=== PATIENT | male | born 1955 | race Caucasian/White ===

== ENCOUNTER 2019-03-24 10:52 | Emergency (ER) | payer OTHER ==
[2019-03-24 11:02] VITALS: BMI 25.7
[2019-03-24] MEDS ORDERED: KETOROLAC TROMETHAMINE 30 MG/1 ML VIAL IVPUSH ONE (11:52)
[2019-03-24] MEDS ORDERED: CLINDAMYCIN 600MG PREMIX IVPB 600 MG/50 ML BAG IVPB ONE ×2 (11:52→12:26)
[2019-03-24] MEDS ORDERED: KETOROLAC TROMETHAMINE 30 MG/1 ML VIAL ONE (12:25)
--- NOTE | 2019-03-24 12:29 | PDOC ---
History of Present Illness - General Chief Complaint: Revisit,Wound Recheck Stated Complaint: WOUND CARE Time Seen by Provider: 03/24/19 11:40 History Source: Patient - History of Present Illness Occurred: reports: yesterday Severity: reports: severe Upper Extremity Pain Location: right: hand Past History - Past Medical History Allergies/Adverse Reactions: Allergies Allergy/AdvReac Type Severity Reaction Status Date / Time No Known Allergies Allergy Verified 03/24/19 10:57 COPD: No Other medical history: glaucoma - Immunization History Immunization Up to Date: Yes - Suicide/Smoking/Psychosocial Hx Smoking History: Current every day smoker Number of Cigarettes Smoked Daily: 3 Information on smoking cessation initiated: No Hx Alcohol Use: No Drug/Substance Use Hx: No Review of Systems - Review of Systems Constitutional: No: Chills, Fever, Malaise Musculoskeletal: Yes: Joint Pain, Joint Swelling Integumentary: Yes: Erythema *Physical Exam - Vital Signs Last Vital Signs Temp Pulse Resp BP Pulse Ox 98.0 F 77 16 140/93 100 03/24/19 10:57 03/24/19 10:57 03/24/19 10:57 03/24/19 10:57 03/24/19 10:57 - Physical Exam General Appearance: Yes: Appropriately Dressed. No: Apparent Distress HEENT: positive: Normal Voice Neck: positive: Supple Respiratory/Chest: negative: Respiratory Distress Musculoskeletal: positive: Other (swelling and erythema to R hand diffusely extending into wrist, most notably to R 2nd/3rd digits w/ intact sutures near distal R 2nd metacarpal, unable to josy extend 2nd digit w/ resistance, no fluctuance) Integumentary: positive: Dry, Warm Neurologic: positive: Fully Oriented, Alert, Normal Mood/Affect ED Treatment Course - LABORATORY CBC & Chemistry Diagram: 03/24/19 12:36 03/24/19 12:36 - RADIOLOGY Radiology Studies Ordered: Category Date Time Status HAND- RIGHT [RAD] Stat Radiology 03/24/19 11:52 Ordered Medical Decision Making - Medical Decision Making 03/24/19 13:26 63 male, history of glaucoma, here with R hand pain, swelling. Patient states yesterday while at work, he sustained a laceration to R hand after a piece of metal struck hand. Was seen at an urgent care [facility] and states an x-ray was done showing a retained foreign body after which wound was explored/irrigated and sutures were placed. Was discharged home. Not currently on abx. Last night began having severe pain and noticed redness and swelling of entire R hand. Pt denies f/c or malaise. Patient states he did receive tetanus at yesterday per pt see exam Cellulitis of hand w/ retained FB (m/l metal given hx) ?tendon involvement of R 2nd given weakness of extension w/ resistance -XR -labs -IV -pain control -IV abx -s/p tetanus vaccine yesterday -hand c/s -admit vs transfer 03/24/19 13:52 XR w/ retained FB near site of injury. Wbc 12, rest of labs unremarkable. Pt s/ p dose of clinda and toradol here. Hand paged w/ no answer after > 1 hr. Will initiate transfer to [facility] 03/24/19 14:53 Per staff, unable to get hand consult on the phone, so patient will be transferred to the ER. I discussed case with Dr. Cisneros, ED attg, who accepted patient as of 2 PM. ETA in approximately 20 minutes. Face sheet faxed and records/CD prepared to be transferred with patient. XR also sent to [facility] vis PACs. Nuree to nurse report given *DC/Admit/Observation/Transfer Diagnosis at time of Disposition: Cellulitis of right hand, Retained foreign body - Discharge Dispostion Disposition: TRANSFER ACUTE CARE/OTHER HOSP Condition at time of disposition: Fair - Referrals - Patient Instructions - Post Discharge Activity
[2019-03-24 12:45] LABS: BASO % 1.3 % (0-2.0); EOS % 3.6 % (0-4.5); HEMATOCRIT 43.6 % (35.4-49); HEMOGLOBIN 14.5 GM/dL (11.7-16.9); LYMPH % 19.4 % (8-40); MCH 31.9 pg (25.7-33.7); MCHC 33.2 g/dl (32.0-35.9); MONO % 10.5 % (3.8-10.2); NEUT % 65.2 % (42.8-82.8); PLATELET COUNT 290 K/MM3 (134-434); RBC 4.54 M/mm3 (4.00-5.60); RDW 13.4 % (11.9-15.9); WHITE BLOOD COUNT 12.8 K/mm3 (4.0-10.0)
[2019-03-24 13:15] LABS: ALBUMIN 3.6 g/dl (3.4-5.0); ALK PHOS 80 U/L (45-117); ANION GAP 5 MMOL/L (8-16); BILIRUBIN,TOTAL 0.5 mg/dL (0.2-1); BLOOD UREA NITROGEN 15 mg/dL (7-18); CHLORIDE 108 mmol/L (98-107); CO2 28 mmol/L (21-32); CREATININE 1.1 mg/dL (0.55-1.3); GLUCOSE,RANDOM 100 mg/dL (74-106); POTASSIUM 4.4 mmol/L (3.5-5.1); SGOT/AST 18 U/L (15-37); SGPT/ALT 23 U/L (13-61); SODIUM 141 mmol/L (136-145)
[2019-03-24 14:41] VITALS: PULSE 70
[2019-03-24 15:06] VITALS: BP 138/89; TEMP 98.4
== END 2019-03-24 15:34 | disposition short-term general hospital (02) ==
LOC: JER 10:52
PROC: 3E03329 Introduction of Other Anti-infective into Peripheral Vein, Percutaneous Approach (ICD-10-PCS; principal; 2019-03-24)
PROC: 3E0333Z Introduction of Anti-inflammatory into Peripheral Vein, Percutaneous Approach (ICD-10-PCS; 2019-03-24)
DX: L03.113 Cellulitis of right upper limb (principal); M79.5 Residual foreign body in soft tissue; H40.9 Unspecified glaucoma
CPT/HCPCS: 36415; 73130-TC-RT-FY; 80053; 85025; 96365; 96375; 99284-25

== ENCOUNTER 2021-11-18 09:35 | Emergency (ER) | payer OTHER ==
[2021-11-18 09:41] VITALS: BP 178/115; PULSE 81; TEMP 97.3; BMI 25.9
[2021-11-18] MEDS ORDERED: ONDANSETRON 4 MG/2 ML VIAL ONE (10:03)
[2021-11-18] MEDS ORDERED: PROCHLORPERAZINE INJECTION 10 MG/2 ML VIAL IVPB ONE (10:40)
[2021-11-18] MEDS ORDERED: ACETAMINOPHEN 1000 MG/100 ML VIAL IVPB ONE (10:41)
[2021-11-18] MEDS ORDERED: KETOROLAC TROMETHAMINE 15 MG/ML VIAL IVPUSH ONE (11:31)
[2021-11-18] MEDS ORDERED: KETOROLAC TROMETHAMINE 30 MG/1 ML VIAL ONE (11:56)
[2021-11-18] MEDS ORDERED: PROCHLORPERAZINE INJECTION 10 MG/2 ML VIAL ONE (11:56)
== END 2021-11-18 12:14 | disposition left against medical advice (07) ==
LOC: JER 09:35
DX: K08.89 Other specified disorders of teeth and supporting structures (principal); I10 Essential (primary) hypertension
CPT/HCPCS: 99283-25; 99284-25

== ENCOUNTER 2024-07-10 03:12 | Inpatient (IN) | payer OTHER ==
[2024-07-10] MEDS: SODIUM CHLORIDE 0.9% 500 ML INFUS.BAG IV ONE (04:22)
[2024-07-10] MEDS ORDERED: ACETAMINOPHEN INJECTION 100 ML IVPB ONE (04:23)
[2024-07-10] MEDS: ACETAMINOPHEN 1000 MG/100 ML BAG IVPB ONE ×2 (04:25→19:30)
[2024-07-10 04:28] LABS: BASO % 1.3 % (0-2.0); EOS % 0.2 % (0-4.5); HEMATOCRIT 38.6 % (35.4-49); HEMOGLOBIN 13.3 GM/dL (11.7-16.9); LYMPH % 8.5 % (8-40); MCH 32.1 pg (25.7-33.7); MCHC 34.6 g/dl (32.0-35.9); MEAN CELL VOLUME 92.8 fl (80-96); MEAN PLT VOLUME 6.7 fl (7.5-11.1); MONO % 8.5 % (3.8-10.2); NEUT % 81.5 % (42.8-82.8); PLATELET COUNT 319 10^3/uL (134-434); RBC 4.16 M/mm3 (4.00-5.60); WHITE BLOOD COUNT 10.1 K/mm3 (4.0-10.0)
[2024-07-10 05:16] LABS: POTASSIUM 3.3 mmol/L (3.5-5.1)
[2024-07-10 05:18] LABS: ALBUMIN 3.4 g/dl (3.4-5.0); BLOOD UREA NITROGEN 20.9 mg/dL (7-18); CALCIUM 9.1 mg/dL (8.5-10.1)
[2024-07-10 05:20] LABS: EPI CELLS 1 /uL (0-25.1); HYALINE CASTS 0 /uL (0-3.1); URINE APPEARANCE CLEAR; URINE BACTERIA 41 /uL (0-1359); URINE BILIRUBIN NEGATIVE (NEGATIVE); URINE COLOR YELLOW; URINE GLUCOSE (UA) NEGATIVE (NEGATIVE); URINE KETONE NEGATIVE (NEGATIVE); URINE LEUK ESTERASE NEGATIVE (NEGATIVE); URINE NITRITE NEGATIVE (NEGATIVE); URINE PROTEIN NEGATIVE (NEGATIVE); URINE RBC 97 /uL (0-23.9); URINE UROBILINOGEN 0.2 mg/dL (0.2-1.0); URINE WBC 15 /uL (0-25.8)
[2024-07-10 05:22] LABS: CREATININE 1.3 mg/dL (0.55-1.3)
[2024-07-10 05:23] LABS: BILIRUBIN,TOTAL 0.4 mg/dL (0.2-1); TOT PROT 7.1 g/dl (6.4-8.2)
[2024-07-10] MEDS ORDERED: KETOROLAC TROMETHAMINE 15 MG/ML VIAL ONE (06:39)
[2024-07-10] MEDS ORDERED: POTASSIUM CHLORIDE ORAL LIQUID 20 MEQ/15 ML ONE ×2 (06:39→08:33)
[2024-07-10] MEDS: POTASSIUM CHLORIDE ORAL LIQUID 20 MEQ/15 ML PO ONE ×2 (06:44→08:38)
[2024-07-10] MEDS: KETOROLAC TROMETHAMINE 15 MG/ML VIAL IVPUSH ONE (06:44)
[2024-07-10 07:31] LABS: MAGNESIUM 1.8 mg/dL (1.8-2.4)
[2024-07-10] MEDS ORDERED: PATIENT'S OWN MEDICATION (NON-FORMULARY) (Dorzolamide/Timolol/Pf [Dorzolamide-Timolol 2%-0 OU SCH (10:00)
[2024-07-10 12:15] VITALS: BMI 24.0
[2024-07-10] MEDS: ENOXAPARIN NA (PORCINE) 40 MG/0.4 ML DISP.SYRIN SQ SCH (13:05)
[2024-07-10] MEDS: MEROPENEM 1 GM in DEXTROSE 5%-WATER 100 ML IVPB SCH ×3 (13:05→18:55)
[2024-07-10] MEDS: amLODIPine BESYLATE 5 MG TABLET (FP) PO SCH (13:08)
[2024-07-10] MEDS: PANTOPRAZOLE 40 MG TABLET PO SCH (13:08)
[2024-07-10] MEDS: TAMSULOSIN HCL 0.4 MG CAP PO SCH (13:13)
[2024-07-10] MEDS: TIMOLOL 0.5% OPHTHALMIC SOL 5 ML BOTTLE OU SCH (14:47)
[2024-07-10] MEDS: DORZOLAMIDE 2% HCL OPHTHALMIC SOLUTION 10 ML BOTTLE OU SCH (14:47)
[2024-07-10] MEDS: ACETAMINOPHEN 325 MG TABLET (FP) PO PRN (15:29)
[2024-07-10] MEDS: ROSUVASTATIN CA 10 MG TABLET PO SCH (21:34)
[2024-07-11] MEDS: MELATONIN 5 MG TABLETS PO ONE (03:48)
[2024-07-11] MEDS: CHLORTHALIDONE 15 MG PO SCH (08:57)
[2024-07-11] MEDS: amLODIPine BESYLATE 5 MG TABLET (FP) PO SCH (09:33)
[2024-07-11 09:58] LABS: HEMATOCRIT 36.6 % (35.4-49); HEMOGLOBIN 12.8 GM/dL (11.7-16.9); MCH 32.3 pg (25.7-33.7); MCHC 34.9 g/dl (32.0-35.9); MEAN CELL VOLUME 92.7 fl (80-96); MEAN PLT VOLUME 7.4 fl (7.5-11.1); PLATELET COUNT 250 10^3/uL (134-434); RBC 3.95 M/mm3 (4.00-5.60); WHITE BLOOD COUNT 6.7 K/mm3 (4.0-10.0)
[2024-07-11 10:14] LABS: POTASSIUM 3.8 mmol/L (3.5-5.1)
[2024-07-11 10:20] LABS: ALBUMIN 3.2 g/dl (3.4-5.0); BLOOD UREA NITROGEN 18.8 mg/dL (7-18); MAGNESIUM 1.8 mg/dL (1.8-2.4)
[2024-07-11 10:24] LABS: BILIRUBIN,TOTAL 0.8 mg/dL (0.2-1); CREATININE 1.4 mg/dL (0.55-1.3); TOT PROT 6.7 g/dl (6.4-8.2)
[2024-07-11] MEDS: MELATONIN 5 MG TABLETS PO PRN (21:18)
[2024-07-11] MEDS: TAMSULOSIN HCL 0.4 MG CAP PO SCH (21:18)
[2024-07-12 09:31] LABS: BASO % 1.8 % (0-2.0); EOS % 1.2 % (0-4.5); HEMATOCRIT 37.8 % (35.4-49); HEMOGLOBIN 13.3 GM/dL (11.7-16.9); LYMPH % 23.9 % (8-40); MCH 32.3 pg (25.7-33.7); MCHC 35.1 g/dl (32.0-35.9); MEAN CELL VOLUME 92.1 fl (80-96); MEAN PLT VOLUME 7.6 fl (7.5-11.1); MONO % 12.1 % (3.8-10.2); PLATELET COUNT 239 10^3/uL (134-434); RDW 13.1 % (11.9-15.9)
[2024-07-12 09:58] LABS: ALBUMIN 3.2 g/dl (3.4-5.0)
[2024-07-12 10:01] LABS: CALCIUM 9.2 mg/dL (8.5-10.1); CREATININE 1.4 mg/dL (0.55-1.3); MAGNESIUM 2.2 mg/dL (1.8-2.4)
[2024-07-12 10:02] LABS: BILIRUBIN,TOTAL 0.6 mg/dL (0.2-1); PHOSPHOROUS 3.1 mg/dL (2.5-4.9)
[2024-07-12 10:03] LABS: BLOOD UREA NITROGEN 16.6 mg/dL (7-18); TOT PROT 6.9 g/dl (6.4-8.2)
[2024-07-12] MEDS: FINASTERIDE 5 MG TABLET (FP) PO SCH (10:20)
[2024-07-12] MEDS: ERTAPENEM SODIUM 1 GM in SODIUM CHLORIDE 50 ML IVPB SCH (18:35)
[2024-07-12] MEDS: POLYETHYLENE GLYCOL (HEALTHYLAX) 3350 17 GM PACKET PO SCH (22:42)
[2024-07-13 06:39] VITALS: TEMP 97.9
[2024-07-13 10:10] LABS: BASO % 1.2 % (0-2.0); EOS % 1.9 % (0-4.5); HEMATOCRIT 36.8 % (35.4-49); HEMOGLOBIN 12.7 GM/dL (11.7-16.9); LYMPH % 28.3 % (8-40); MCH 31.8 pg (25.7-33.7); MCHC 34.6 g/dl (32.0-35.9); MEAN PLT VOLUME 7.5 fl (7.5-11.1); MONO % 12.5 % (3.8-10.2); NEUT % 56.1 % (42.8-82.8); PLATELET COUNT 239 10^3/uL (134-434); RDW 13.1 % (11.9-15.9); WHITE BLOOD COUNT 5.6 K/mm3 (4.0-10.0)
[2024-07-13 10:24] LABS: POTASSIUM 4.2 mmol/L (3.5-5.1)
[2024-07-13 10:32] LABS: ALBUMIN 3.1 g/dl (3.4-5.0); BLOOD UREA NITROGEN 23.2 mg/dL (7-18); CALCIUM 9.3 mg/dL (8.5-10.1)
[2024-07-13 10:34] LABS: MAGNESIUM 2.4 mg/dL (1.8-2.4)
[2024-07-13 10:35] LABS: CREATININE 1.2 mg/dL (0.55-1.3)
[2024-07-13 10:37] LABS: BILIRUBIN,TOTAL 0.5 mg/dL (0.2-1); TOT PROT 6.7 g/dl (6.4-8.2)
[2024-07-13 11:00] VITALS: BP 110/78; PULSE 64; RESP 20
== END 2024-07-13 16:04 | disposition home or self-care (01) | DRG 863 ==
LOC: JER 03:12 → JERBED 07:23 → J5S 09:24
PROVIDERS: ADMIT Internal Medicine; ATTEND Internal Medicine
PROC: 05HY33Z Insertion of Infusion Device into Upper Vein, Percutaneous Approach (ICD-10-PCS; principal; 2024-07-13)
DX: T81.44XA Sepsis following a procedure, initial encounter (principal); N39.0 Urinary tract infection, site not specified; Z16.12 Extended spectrum beta lactamase (ESBL) resistance; Y83.9 Surgical procedure, unspecified as the cause of abnormal reaction of the patient, or of later complication, without mention of misadventure at the time of the procedure; E87.6 Hypokalemia; I10 Essential (primary) hypertension; K21.9 Gastro-esophageal reflux disease without esophagitis; N40.1 Benign prostatic hyperplasia with lower urinary tract symptoms; A49.9 Bacterial infection, unspecified; F17.210 Nicotine dependence, cigarettes, uncomplicated
CPT/HCPCS: 0241U-QW; 36415; 36569; 71045-TC-FY; 74176-TC; 76856-TC; 80053; 81003; 82962; 83735; 84100; 85025; 85027; 86140; 87040; 87086; 93005; 93010; 99285-25; J0131

== ENCOUNTER 2024-09-02 11:13 | Emergency (ER) | payer OTHER ==
[2024-09-02 11:21] VITALS: RESP 18; TEMP 97.9; BMI 24.5
[2024-09-02] MEDS: LACTATED RINGERS SOLUTION 1000 ML INFUS.BAG IV ONE (12:54)
[2024-09-02 13:01] LABS: BASO % 0.9 % (0-2.0); EOS % 2.4 % (0-4.5); HEMATOCRIT 41.7 % (35.4-49); HEMOGLOBIN 13.9 GM/dL (11.7-16.9); MCH 31.3 pg (25.7-33.7); MCHC 33.3 g/dl (32.0-35.9); MEAN PLT VOLUME 7.3 fl (7.5-11.1); MONO % 4.8 % (3.8-10.2); NEUT % 83.9 % (42.8-82.8); PLATELET COUNT 284 10^3/uL (134-434); RBC 4.44 M/mm3 (4.00-5.60); RDW 13.5 % (11.9-15.9); WHITE BLOOD COUNT 15.1 K/mm3 (4.0-10.0)
[2024-09-02 13:07] LABS: EPI CELLS 5 /uL (0-25.1); HYALINE CASTS 0 /uL (0-3.1); URINE APPEARANCE CLEAR; URINE BACTERIA 12 /uL (0-1359); URINE BILIRUBIN NEGATIVE (NEGATIVE); URINE COLOR YELLOW; URINE GLUCOSE (UA) NEGATIVE (NEGATIVE); URINE KETONE NEGATIVE (NEGATIVE); URINE LEUK ESTERASE NEGATIVE (NEGATIVE); URINE NITRITE NEGATIVE (NEGATIVE); URINE PROTEIN 1+ (NEGATIVE); URINE RBC 34 /uL (0-23.9); URINE UROBILINOGEN 0.2 mg/dL (0.2-1.0); URINE WBC 13 /uL (0-25.8)
[2024-09-02 13:12] LABS: INR 1.05 (0.83-1.09); PROTHROMBIN TIME (PATIENT) 12.1 SEC (9.7-13.0)
[2024-09-02 13:13] LABS: ACTIVATED PTT 31.7 SECONDS (25.2-36.5)
[2024-09-02 13:14] LABS: POTASSIUM 4.4 mmol/L (3.5-5.1)
[2024-09-02 13:18] LABS: ALBUMIN 4.2 g/dl (3.4-5.0); BLOOD UREA NITROGEN 15.5 mg/dL (7-18); CALCIUM 9.7 mg/dL (8.5-10.1); MAGNESIUM 2.2 mg/dL (1.8-2.4)
[2024-09-02 13:22] LABS: CREATININE 1.3 mg/dL (0.55-1.3)
[2024-09-02 13:23] LABS: BILIRUBIN,TOTAL 0.7 mg/dL (0.2-1); TOT PROT 7.9 g/dl (6.4-8.2)
[2024-09-02] MEDS: SODIUM CHLORIDE 0.9% 500 ML INFUS.BAG IV ONE (15:34)
[2024-09-02 16:49] VITALS: BP 148/99; PULSE 84
== END 2024-09-02 17:01 | disposition home or self-care (01) ==
LOC: JER 11:13
DX: R10.31 Right lower quadrant pain (principal); R35.0 Frequency of micturition; R53.1 Weakness
CPT/HCPCS: 36415; 74177-TC; 80053; 81003; 83690; 83735; 84484; 85025; 85610; 85730; 86850; 86900; 86901; 87086; 93005; 93010; 99285-25